=== PATIENT | male | born 2000 | race Caucasian/White ===

== ENCOUNTER → 2025-05-03 | Day surgery (SDC) | payer MEDICAID, OTHER ==
[~2025-05-03] VITALS: Ht 170.2 cm; Wt 178.2 kg
[~2025-05-03] MED LIST: LIDOCAINE/PF 2% 5 ML VIAL ONE; OXYGEN THERAPY IH SCH; PROPOFOL 1% ISO-OSM 1000 MG/100 ML BOTTLE ONE; SODIUM CHLORIDE 0.9% 1,000 ML ONE
[2025-05-03] MEDS: SODIUM CHLORIDE 0.9% 1,000 ML IV ONE (09:39)
== END | disposition home or self-care (01) ==
LOC: SURGERY 08:57
PROVIDERS: ATTEND Specialist
DX: D64.9 Anemia, unspecified (principal); E66.01 Morbid (severe) obesity due to excess calories; Z68.44 Body mass index [BMI] 60.0-69.9, adult; Z90.49 Acquired absence of other specified parts of digestive tract
CPT/HCPCS: 45378; J3490; J2704; J7030